=== PATIENT | female | born 1950 | race Caucasian/White ===

== ENCOUNTER 2018-11-25 19:43 | Emergency (ER) | payer BC, OTHER ==
[2018-11-25 20:06] VITALS: BP 155/57; PULSE 84; TEMP 98.7; BMI 31.4
--- NOTE | 2018-11-25 20:17 | PDOC ---
History of Present Illness - General Chief Complaint: Cold Symptoms Stated Complaint: FLU LIKE SYMPTOMS Time Seen by Provider: 11/25/18 20:17 - History of Present Illness Initial Comments: 11/25/18 20:57 HPI: 68 y/o F with hx of HTN, DM, left breast CA s/p lumpectomy and chemoradiation presenting with 2 days of chills and 1 day of generalized weakness and myalgias. She reports going home from work yesterday and having significant chills and feeling tired. T taken was 101. This morning she woke and had 5 episodes of loose stool/watery diarrhea associated with nausea and 2 episodes of NBNB emesis. She reports her whole body aches worsened today and is constant and feel "like someone hit my whole body with a bat." She also reports being food aversive for fear of emesis but is able to tolerate liquids. She report continued nausea. She denies chest pain, SOB, syncope, weight loss, cough, rhinorrhea, sneezing, sore throat Of note, she reports sicks contact 2 days ago at work as well as being around children PMHx: as noted above ROS: as noted SHx: Denies tobacco use; no alcohol use; no rec drugs Allergies: NKDA ROS: GENERAL/CONSTITUTIONAL: +fever and chills and generalized weakness. HEAD, EYES, EARS, NOSE AND THROAT: No change in vision. No ear pain or discharge. No sore throat. CARDIOVASCULAR: No chest pain or shortness of breath RESPIRATORY: No cough, wheezing, or hemoptysis. GASTROINTESTINAL: +nausea, vomiting, diarrhea GENITOURINARY: No dysuria, frequency, or change in urination. MUSCULOSKELETAL: myalgias SKIN: No rash NEUROLOGIC: No vertigo, loss of consciousness, or change in strength/sensation. ENDOCRINE: No increased thirst. No abnormal weight change HEMATOLOGIC/LYMPHATIC: No anemia, easy bleeding, or history of blood clots. ALLERGIC/IMMUNOLOGIC: No hives or skin allergy. PE: GENERAL: Awake, alert, and fully oriented, no acute distress HEAD: No signs of trauma, normocephalic, atraumatic EYES: EOMI, sclera anicteric, conjunctiva clear ENT: Auricles normal inspection, hearing grossly normal, nares patent, oropharynx clear without exudates. Moist mucosa NECK: Normal ROM, no lymphadenopathy LUNGS: No increased work of breathing, symmetrical chest rise, clear to auscultation bilaterally, no wheezes, crackles or rhonchi HEART: Regular rate and rhythm, normal S1 and S2, no murmurs, peripheral pulses 2+ and equal bilaterally. ABDOMEN: Soft, nondistended, nontender, normoactive bowel sounds. No guarding, no rebound. No masses EXTREMITIES: Normal inspection, Normal range of motion, no edema. No clubbing or cyanosis. NEUROLOGICAL: Cranial nerves II through XII grossly intact. Normal speech, normal gait, no focal sensorimotor deficits SKIN: Warm, Dry, normal turgor, no rashes or lesions noted Past History - Past Medical History Allergies/Adverse Reactions: Allergies Allergy/AdvReac Type Severity Reaction Status Date / Time No Known Allergies Allergy Verified 07/30/14 16:49 Home Medications: Ambulatory Orders Cyclobenzaprine HCl [Flexeril -] 10 mg PO TID PRN 08/25/13 Ibuprofen [Motrin -] 600 mg PO QID PRN 08/25/13 Valsartan/Hydrochlorothiazide [Valsartan-Hctz 320-25 mg Tab] 1 each PO DAILY metFORMIN HCL [Glucophage -] 500 mg PO TID 08/25/13 Ondansetron [Zofran *Odt*] 4 mg SL BID #14 od.tablet 11/26/18 Diabetes: Yes (NIDDM) HTN: Yes - Surgical History Cholecystectomy: Yes - Family Disease History Family Disease History: Diabetes: Mother, Heart Disease: Father, Mother - Suicide/Smoking/Psychosocial Hx Smoking Status: Yes Smoking History: Never smoked Have you smoked in the past 12 months: No Number of Cigarettes Smoked Daily: 0 If you are a former smoker, when did you quit?: 40 years ago Hx Alcohol Use: No Drug/Substance Use Hx: No Substance Use Type: None Hx Substance Use Treatment: No *Physical Exam - Vital Signs Last Vital Signs Temp Pulse Resp BP Pulse Ox 98.7 F 84 19 155/57 L 97 11/25/18 20:02 11/25/18 20:02 11/25/18 20:02 11/25/18 20:02 11/25/18 20:02 ED Treatment Course - LABORATORY CBC & Chemistry Diagram: 11/25/18 21:31 11/25/18 21:00 Medical Decision Making - Medical Decision Making 11/25/18 21:24 68 y/o F with hx of HTN, DM, left breast CA s/p lumpectomy and chemoradiation presenting with 2 days of chills and 1 day of generalized weakness and myalgias associated with LAINEZ, diarrhea, and emesis. BP 155/57 HR 84 AF O2 97% RA. PE unremarkable -spesis order set, lipase, reapid flu, RSV, ofirmev 11/26/18 00:55 patient symptoms significantly improved following administration of IVF and ofirmev RSV + Discussed with patient results and return pcxns; patient understands instructions and is comfortable with DC home *DC/Admit/Observation/Transfer Diagnosis at time of Disposition: Myalgia, RSV (respiratory syncytial virus infection), Fatigue - Discharge Dispostion Disposition: HOME Condition at time of disposition: Improved Decision to Admit order: No - Prescriptions Prescriptions: Ondansetron [Zofran *Odt*] 4 mg SL BID #14 od.tablet - Referrals Referrals: Eduar Saldana MD [Primary Care Provider] - - Patient Instructions Printed Discharge Instructions: DI for Respiratory Syncytial Virus -- Adults Additional Instructions: Additional Instructions: Please return to the emergency department with any new or worsening symptoms or concerns including difficulty breathing, fainting, inability to tolerate food, significant vomiting. Please follow up with your primary care physician within 72 hours. Please maintain distance from high risk patients to prevent spread of virus including children, women. Please wear a mask to prevent spread of virus through coughing or sneezing Please ensure adequate liquid oral intake with water, gatorade, pedialyte. For pain, you make take 500mg Tylenol every 6-8 hours and/or Motrin 600mg every 6-8 hours. - Post Discharge Activity Forms/Work/School Notes: Back to Work
[2018-11-25] MEDS ORDERED: SODIUM CHLORIDE 2,341 ML IV ONE (20:52)
[2018-11-25] MEDS ORDERED: ACETAMINOPHEN 1000 MG/100 ML VIAL (NON FORMULARY) IVPB ONE (20:53)
--- NOTE | 2018-11-25 21:28 | PDOC ---
Documentation entered by Nadia Martines SCRIBE, acting as scribe for Ritu Lamb MD. Ritu Lamb MD: This documentation has been prepared by the joselinibe, Nadia Martines SCRIBE, under my direction and personally reviewed by me in its entirety. I confirm that the documentation accurately reflects all work, treatment, procedures, and medical decision making performed by me. Attending Attestation - Resident Resident Name: ModeMaurice - ED Attending Attestation I have performed the following: I have examined & evaluated the patient, The case was reviewed & discussed with the resident, I agree w/resident's findings & plan, Exceptions are as noted - HPI HPI: 11/25/18 20:54 The patient is a 68 year old female with a past medical history significant for DM, HTN, Breast CA s/p Lumpectomy who presents to the emergency department with chills, generalized weakness, fatigue, body aches, diarrhea and emesis. The patient presents with 1 day history of chills, which has progressed into generalized fatigue, body ache/pain, abdominal discomfort associated with watery diarrhea and 2 episode of NBNB emesis. Denies chest pain or shortness of breath. Allergies: NKDA - Physicial Exam PE: GENERAL: Awake, alert, and fully oriented, in no acute distress HEAD: No signs of trauma EYES: PERRLA, EOMI, sclera anicteric, conjunctiva clear ENT: Auricles normal inspection, hearing grossly normal, nares patent, oropharynx clear without exudates. Dry mucosa NECK: Normal ROM, supple, no lymphadenopathy, JVD, or masses LUNGS: Breath sounds equal, clear to auscultation bilaterally. No wheezes, and no crackles HEART: Regular rate and rhythm, normal S1 and S2, no murmurs, rubs or gallops ABDOMEN: Soft, nontender, normoactive bowel sounds. No guarding, no rebound. No masses EXTREMITIES: Normal range of motion, no edema. No clubbing or cyanosis. No cords, erythema, or tenderness NEUROLOGICAL: Cranial nerves II through XII grossly intact. Normal speech, normal gait. Motor and sensation intact SKIN: Warm, dry, normal turgor, no rashes or lesions noted. - Medical Decision Making Pt with history of breast CA presenting with high fever at home, body aches, associated with N/V. +Sick contacts. Symptoms suspicious for flu. Will check labs, lactate, cultures, CXR. If all wnl, will DC home if improved with tylenol and fluids. Heart Score/ECG Review - ECG Impressions Comment:: EKG read 22:38- Sinus rhythm 85 bpm with frequent PVCs, +LVH
[2018-11-25 21:42] LABS: BASO % 0.7 % (0-2.0); EOS % 0.3 % (0-4.5); HEMATOCRIT 35.1 % (32.4-45.2); HEMOGLOBIN 11.1 GM/dL (10.7-15.3); LYMPH % 7.8 % (8-40); MCH 22.8 pg (25.7-33.7); MCHC 31.5 g/dl (32.0-36.0); MEAN CELL VOLUME 72.3 fl (80-96); MEAN PLT VOLUME 8.5 fl (7.5-11.1); MONO % 3.1 % (3.8-10.2); NEUT % 88.1 % (42.8-82.8); PLATELET COUNT 228 K/MM3 (134-434); RBC 4.86 M/mm3 (3.60-5.2); RDW 17.3 % (11.6-15.6); WHITE BLOOD COUNT 8.4 K/mm3 (4.0-10.0)
[2018-11-25 21:49] LABS: INR 1.63 (0.83-1.09); PROTHROMBIN TIME (PATIENT) 19.3 SEC (9.7-13.0)
[2018-11-25] MEDS ORDERED: ACETAMINOPHEN INJECTION 100 ML IVPB ONE (22:04)
[2018-11-25 22:17] LABS: ALBUMIN 3.2 g/dl (3.4-5.0); BILIRUBIN,TOTAL 0.6 mg/dL (0.2-1); BLOOD UREA NITROGEN 17.4 mg/dL (7-18); CALCIUM 9.4 mg/dL (8.5-10.1); TOT PROT 6.3 g/dl (6.4-8.2)
[2018-11-25 22:18] LABS: POTASSIUM 4.4 mmol/L (3.5-5.1)
[2018-11-25 22:27] LABS: VENOUS PH 7.53 (7.31-7.41)
--- NOTE | 2018-11-26 16:54 | EKG ---
Test Reason : Blood Pressure : / mmHG Vent. Rate : 085 BPM Atrial Rate : 078 BPM P-R Int : 000 ms QRS Dur : 088 ms QT Int : 412 ms P-R-T Axes : 000 -33 -10 degrees QTc Int : 490 ms NORMAL SINUS RHYTHM PREMATURE VENTRICULAR COMPLEXES LEFT AXIS DEVIATION LEFT VENTRICULAR HYPERTROPHY WITH REPOLARIZATION ABNORMALITY PROLONGED QT ABNORMAL ECG Confirmed by MD WOODRUFF MOYSES ([id number]) on 11/26/2018 4:54:35 PM Referred By: Confirmed By:GIULIANO WOODRUFF MD
== END 2018-11-26 02:02 | disposition home or self-care (01) ==
LOC: JER 19:43
PROC: 3E0337Z Introduction of Electrolytic and Water Balance Substance into Peripheral Vein, Percutaneous Approach (ICD-10-PCS; principal; 2018-11-25)
PROC: 3E033NZ Introduction of Analgesics, Hypnotics, Sedatives into Peripheral Vein, Percutaneous Approach (ICD-10-PCS; 2018-11-25)
DX: M79.18 Myalgia, other site (principal); B97.4 Respiratory syncytial virus as the cause of diseases classified elsewhere; I10 Essential (primary) hypertension; E11.9 Type 2 diabetes mellitus without complications; Z79.84 Long term (current) use of oral hypoglycemic drugs
CPT/HCPCS: 36415; 71045-TC-FY; 80053; 82803; 83605; 83690; 84484; 85025; 85610; 85730; 87040; 87804; 87807; 93005; 93010; 99283-25; J0131; J7030